=== PATIENT | male | born 1960 | race Caucasian/White ===

== ENCOUNTER 2025-04-19 17:47 | Inpatient (IN) | payer BC ==
[~2025-04-19] VITALS: Ht 167.6 cm; Wt 98.9 kg
[2025-04-19] MEDS ORDERED: IPRATROPIUM BROMIDE 0.5 MG/2.5 ML NEBU ONE (18:28)
[2025-04-19] MEDS ORDERED: ALBUTEROL SULFATE 2.5 MG/3 ML NEBU ONE (18:28)
[2025-04-19] MEDS ORDERED: CEFTRIAXONE 500 MG VIAL IV ONE (18:30)
[2025-04-19] MEDS: IPRATROPIUM BROMIDE 0.5 MG/2.5 ML NEBU NEB ONE (18:32)
[2025-04-19] MEDS: ALBUTEROL SULFATE 2.5 MG/3 ML NEBU NEB ONE (18:32)
[2025-04-19 18:36] LABS: PLATELET COUNT (AUTO) 209 K/uL (152-348); RED BLOOD CELL COUNT(AUTO) 4.58 MIL/uL (4.06-5.63); RED CELL DISTRIBUTION WIDTH 15.4 % (12.1-16.2); WHITE BLOOD COUNT (AUTO) 17.1 K/uL (3.6-10.2)
[2025-04-19 18:38] VITALS: O2SAT 88
[2025-04-19 18:54] LABS: CREATININE 1.4 mg/dL (0.6-1.3); SODIUM SERUM 135.0 mmol/L (136-145); UREA NITROGEN, BLOOD 23.0 mg/dL (7-18)
[2025-04-19 18:55] VITALS: O2SAT 98
[2025-04-19 19:07] LABS: ASPARTATE AMINOTRANSFERASE 17.0 U/L (15-37); TOTAL PROTEIN, SERUM 8.0 g/dL (6.4-8.2)
[2025-04-19] MEDS: IV NORMAL SALINE 500 ML BAG IV ONE (19:45)
[2025-04-19] MEDS ORDERED: ONDANSETRON 4 MG/2 ML VIAL IV PRN (20:00)
[2025-04-19] MEDS ORDERED: ACETAMINOPHEN 325 MG TABLET PO PRN (20:00)
[2025-04-19] MEDS ORDERED: PROP20TA7 PO (20:34)
[2025-04-19] MEDS ORDERED: AMLO-212 PO (20:34)
[2025-04-19] MEDS ORDERED: HYDR-3980 PO (20:34)
[2025-04-19] MEDS ORDERED: PANT40TA2 PO (20:34)
[2025-04-19] MEDS ORDERED: VENL-192 PO (20:34)
[2025-04-19] MEDS ORDERED: CLOP75TA33 PO (20:34)
[2025-04-19] MEDS ORDERED: TRAZ150T75 PO (20:34)
[2025-04-19] MEDS ORDERED: ATOR80TA PO (20:34)
[2025-04-19] MEDS ORDERED: ASPI81TA31 PO (20:34)
[2025-04-19] MEDS ORDERED: BUSP15TA3 PO (20:34)
[2025-04-19] MEDS ORDERED: IOHEXOL 350 100 ML INFUS..BTL ONE (20:42)
[2025-04-19] MEDS ORDERED: TRAZODONE 50 MG TABLET ONE (21:47)
[2025-04-19] MEDS ORDERED: HYDROCODONE/APAP 10-325 MG TABLET ONE (21:47)
[2025-04-19] MEDS ORDERED: ENOXAPARIN SODIUM 40 MG/0.4 ML DISP.SYRIN SQ ONE (21:48)
[2025-04-19] MEDS: TRAZODONE 50 MG TABLET PO ONE (21:51)
[2025-04-19] MEDS: HYDROCODONE/APAP 10-325 MG TABLET PO ONE (21:52)
[2025-04-19] MEDS: ENOXAPARIN SODIUM 40 MG/0.4 ML DISP.SYRIN SQ SCH (21:52)
[2025-04-19 22:04] VITALS: BP 153/90
[2025-04-19 23:54] VITALS: BP 140/81; TEMP 98.5; O2SAT 95
[2025-04-20] VITALS (7 sets, daily range): BP systolic 120–134; BP diastolic 59–68; TEMP 97.9–98.9; O2SAT 94–98
[2025-04-20] MEDS: IV NS 1000 ML 1,000 ML IV PRN (05:12)
[2025-04-20] MEDS: PANTOPRAZOLE SODIUM 40 MG TABLET.DR PO SCH (06:34)
[2025-04-20 06:37] LABS: PLATELET COUNT (AUTO) 190 K/uL (152-348); RED BLOOD CELL COUNT(AUTO) 4.08 MIL/uL (4.06-5.63); RED CELL DISTRIBUTION WIDTH 15.3 % (12.1-16.2); WHITE BLOOD COUNT (AUTO) 11.6 K/uL (3.6-10.2)
[2025-04-20 07:07] LABS: CREATININE 1.2 mg/dL (0.6-1.3); SODIUM SERUM 140.0 mmol/L (136-145); UREA NITROGEN, BLOOD 19.0 mg/dL (7-18)
[2025-04-20] MEDS: PROPRANOLOL HCL 20 MG TABLET PO SCH ×2 (08:48→20:09)
[2025-04-20] MEDS: CLOPIDOGREL 75 MG TABLET PO SCH (08:49)
[2025-04-20] MEDS: ASPIRIN 81 MG TAB.CHEW PO SCH (08:49)
[2025-04-20] MEDS: AMLODIPINE 5 MG TABLET PO SCH (08:49)
[2025-04-20] MEDS: VENLAFAXINE XR 75 MG TAB.ER.24H PO SCH (08:50)
[2025-04-20] MEDS ORDERED: CALC500T13 PO (10:22)
[2025-04-20] MEDS ORDERED: PREG150C PO (10:23)
[2025-04-20] MEDS ORDERED: DOXE3TAB4 PO (10:23)
[2025-04-20] MEDS ORDERED: ALBU6.7H9 IH (10:24)
[2025-04-20] MEDS ORDERED: MOUNJARO SQ (10:26)
[2025-04-20] MEDS ORDERED: VENL150C58 PO (10:29)
[2025-04-20] MEDS ORDERED: BUDE10.26 INH (10:31)
[2025-04-20] MEDS ORDERED: HYDR-3980 PO ×2 (10:32)
[2025-04-20] MEDS: HYDROCODONE/APAP 5-325MG TABLET PO PRN (10:42)
[2025-04-20] MEDS: PREGABALIN 50 MG CAPSULE PO SCH (11:28)
[2025-04-20] MEDS: TRAZODONE 50 MG TABLET PO SCH (20:08)
[2025-04-20] MEDS: ATORVASTATIN 40 MG TABLET PO SCH (20:08)
[2025-04-21] VITALS (9 sets, daily range): BP systolic 110–149; BP diastolic 54–84; TEMP 98.5–99.2; O2SAT 91–98
[2025-04-21] MEDS ORDERED: LEVO500T90 PO (08:14)
[2025-04-21] MEDS: VENLAFAXINE 25 MG TABLET PO SCH (09:34)
[2025-04-21] MEDS: VENLAFAXINE XR 150 MG CAP.SR.24H PO SCH (09:34)
[2025-04-21] MEDS: FORMOTEROL INH SCH (09:34)
[2025-04-21] MEDS: BUDESONIDE INH SCH (09:34)
[2025-04-21 09:41] LABS: PLATELET COUNT (AUTO) 167 K/uL (152-348); RED BLOOD CELL COUNT(AUTO) 3.92 MIL/uL (4.06-5.63); RED CELL DISTRIBUTION WIDTH 15.6 % (12.1-16.2); WHITE BLOOD COUNT (AUTO) 9.0 K/uL (3.6-10.2)
[2025-04-21 10:01] LABS: CREATININE 0.9 mg/dL (0.6-1.3); SODIUM SERUM 143.0 mmol/L (136-145); UREA NITROGEN, BLOOD 19.0 mg/dL (7-18)
[2025-04-21] MEDS ORDERED: LEVO750T46 PO (14:24)
[2025-04-21] MEDS ORDERED: GUAI237L98 PO (14:46)
[2025-04-22 00:29] VITALS: BP 144/79; TEMP 98.5; O2SAT 95
[2025-04-22 03:30] VITALS: O2SAT 98
[2025-04-22 04:39] VITALS: BP 127/78; TEMP 98.2; O2SAT 97
[2025-04-22 08:00] VITALS: BP 144/90; TEMP 98.8; O2SAT 96
[2025-04-22 08:39] VITALS: BP 144/90
[2025-04-22] MEDS: ALBUTEROL SULFATE IH PRN (08:47)
== END 2025-04-22 11:50 | disposition home or self-care (01) | DRG 871 ==
LOC: ER 18:00 → TELE3 22:22 → MEDSURG3 04-22 10:07
PROVIDERS: ADMIT Nurse Practitioner Acute Care; ATTEND Nurse Practitioner Acute Care
DX: A41.9 Sepsis, unspecified organism (principal); J12.82 Pneumonia due to coronavirus disease 2019; J13 Pneumonia due to Streptococcus pneumoniae; U07.1 COVID-19; J96.01 Acute respiratory failure with hypoxia; N17.9 Acute kidney failure, unspecified; J44.0 Chronic obstructive pulmonary disease with (acute) lower respiratory infection; J44.1 Chronic obstructive pulmonary disease with (acute) exacerbation; D68.9 Coagulation defect, unspecified; E78.5 Hyperlipidemia, unspecified; E66.9 Obesity, unspecified; F39 Unspecified mood [affective] disorder; I10 Essential (primary) hypertension; Z87.891 Personal history of nicotine dependence; Z79.899 Other long term (current) drug therapy; Z79.02 Long term (current) use of antithrombotics/antiplatelets; Z79.82 Long term (current) use of aspirin; Z68.35 Body mass index [BMI] 35.0-35.9, adult; R65.20 Severe sepsis without septic shock; Z86.718 Personal history of other venous thrombosis and embolism; Z86.711 Personal history of pulmonary embolism
CPT/HCPCS: 36415; 71045; 71275; 83605; 83735; 84100; 85025; 87040; A4606; A4663; G0378; J1650; J1956; J2919; J3535; J3590; J7040; Q9967